=== PATIENT | male | born 1975 | race Hispanic/Latino ===

== ENCOUNTER 2017-01-14 08:27 | Day surgery (SDC) | payer BC ==
--- NOTE | 2017-01-14 10:00 | CP.PCM.PN ---
Subjective - Date & Time of Evaluation Date of Evaluation: 01/14/17 Time of Evaluation: 09:34 - Subjective Subjective: PROCEDURE NOTE: Procedure: Tilt table test Date of service: 01/14/2017 [employer] Lieutenant: Avery Santos MD Indication: Recurrent syncope Using the routine tilt table test protocol, the patient was put on a 30degrees for 5 minutes and 60 for 15 minutes. Patient tolerated the procedure well. Patient was asymptomatic throughout the test IMPRESSION: Negative tilt table test Appropriate heart rate and BP response to tilt table test Asymptomatic throughout the test
[2017-01-14 10:03] VITALS: TEMP 97.6
[2017-01-14 10:30] VITALS: BP 126/85; PULSE 57; RESP 16; O2SAT 97
== END 2017-01-14 10:30 | disposition home or self-care (01) ==
LOC: C.CATHLAB 08:27
PROVIDERS: ATTEND Internal Medicine
DX: R55 Syncope and collapse (principal); D64.9 Anemia, unspecified; I34.1 Nonrheumatic mitral (valve) prolapse